=== PATIENT | female | born 1950 | race Caucasian/White ===

== ENCOUNTER → 2020-03-01 12:59 | Outpatient (CLI) | payer MEDICARE, SELFPAY ==
[2020-03-01] MEDS: COVID-19 VACC #1, MRNA(MOD) 100 MCG/0.5 ML VIAL IM (13:13)
== END ==
PROVIDERS: Visit Provider Internal Medicine
DX: Z23 Encounter for immunization (principal)
CPT/HCPCS: 0011A; 91301

== ENCOUNTER → 2020-03-29 13:46 | Outpatient (CLI) | payer MEDICARE, SELFPAY ==
[2020-03-29] MEDS: COVID-19 VACC #2, MRNA(MOD) 100 MCG/0.5 ML VIAL IM (13:55)
== END ==
PROVIDERS: Visit Provider Internal Medicine
DX: Z23 Encounter for immunization (principal)
CPT/HCPCS: 0012A; 91301

== ENCOUNTER → 2021-03-17 11:48 | Outpatient (CLI) | payer OTHER, SELFPAY ==
[2021-03-17 14:04] LABS: COVID19 -Nasal RAPID Negative (Negative)
== END ==
PROVIDERS: Visit Provider Nurse Practitioner Family
DX: Z20.822 Contact with and (suspected) exposure to COVID-19 (principal)
CPT/HCPCS: 87635

== ENCOUNTER → 2021-08-25 11:37 | Outpatient (CLI) | payer OTHER, SELFPAY ==
[2021-08-25 14:29] LABS: COVID19 -Nasal RAPID Negative (Negative)
== END ==
PROVIDERS: Visit Provider Surgery
DX: Z01.812 Encounter for preprocedural laboratory examination (principal); Z20.822 Contact with and (suspected) exposure to COVID-19
CPT/HCPCS: 87635; C9803

== ENCOUNTER 2021-08-26 14:53 | Day surgery (SDC) | payer OTHER, SELFPAY ==
[2021-08-26 15:07] VITALS: BMI 29.7
[2021-08-26 15:19] VITALS: BP 129/85; PULSE 86; RESP 16; TEMP 35.9; O2SAT 96
[2021-08-26] MEDS: LACTATED RINGERS 1,000 ML 200 ML IV (16:05)
--- NOTE | 2021-08-26 16:38 | PM.HP.1 ---
History of Present Illness History of Present Illness Date Patient Seen: 08/26/21 Time Patient Seen: 16:38 Chief complaint: SCREENING COLONOSCOPY Narrative: The patient presents for colorectal screening. She had previous colonoscopy 12 years ago which was normal.. No personal or family history of colon cancer. On further history denies any recent gastrointestinal symptoms. No nausea, vomiting, abdominal pain, loss of appetite, unexplained weight loss, change in bowel habits, diarrhea, constipation, melena, hematochezia, or bright red blood per rectum. Patient History Surgical History Hx of spinal surgery Family & Social History Family History Sister Breast cancer Father Stroke Social History: household members spouse Tobacco & Substance use: Smoking Status Never smoker alcohol intake current alcohol intake frequency a few times a month Substance Use Type does not use Meds Home Medications and Allergies Home Medications Medication Instructions Recorded Confirmed Type fluoxetine 10 mg capsule 10 mg PO DAILY 03/17/21 03/17/21 History acetaminophen 08/26/21 History duloxetine 20 mg capsule,delayed cap PO 08/26/21 History release ibuprofen 200 mg tablet 400 mg PO Q6H PRN Pain (Scale 08/26/21 08/26/21 History Score 1-3) Allergies Allergy/AdvReac Type Severity Reaction Status Date / Time No Known Drug Allergies Allergy Verified 08/26/21 15:31 Exam Vital Signs (past 8 hours): - 08/26/21 15:19 Temperature 96.7 F L Pulse Rate 86 Respiratory Rate 16 Blood Pressure 129/85 Pulse Oximetry 96 Oxygen Delivery Method Room Air Oxygen Delivery Method Room Air Narrative Exam Narrative: General adult woman alert oriented no acute distress Abdomen soft nontender nondistended Assessment & Plan Assessment & Plan narrative: The patient requires colorectal screening and colonoscopy is recommended. Technical details were discussed. Risks, benefits, alternatives explained. Risks including but not limited to myocardial infarction, aspiration, bleeding, pain, missed lesion, incomplete examination, need for further radiographic studies, colonic perforation, and need for major abdominal surgery were discussed. All questions were answered to their satisfaction, and they are in agreement with this plan. Time Spent With Patient Critical Care time: I spent a total of [] minutes of critical care time on this patient's care today; this time is exclusive of procedural time.
[2021-08-26] MEDS: fentaNYL 250 MCG/5 ML INJ 150 MCG IV (17:02)
[2021-08-26] MEDS: MIDAZOLAM 5 MG/5 ML VIAL 6 MG IV (17:04)
--- NOTE | 2021-08-26 17:08 | PM.OP.COLON ---
Operative Date/Time/Diagnoses Date of procedure: 08/26/21 Time of procedure: 17:08 Pre-op diagnosis: Screening colonoscopy Post-op diagnosis: same Procedure & Clinicians Study performed: Colonoscopy Same procedure as scheduled: Yes Indications: Screening Surgeon: Bryon Johnson Procedure Notes Procedure in detail: Medications: Conscious sedation using 6 mg IV midazolam and 150 mcg IV of fentanyl The history and physical was performed/updated and the patient is ASA class is 2. The procedure was discussed in detail with the patient. Potential risks complications including infection, bleeding, missed diagnosis, perforation, need for surgery, and were explained. Their questions were answered and informed consent was obtained. Patient was brought to the procedure room and placed standard monitoring equipment. The patient's vital signs were monitored continuously throughout the entire procedure. Prior to starting time-out was performed. The patient was placed in the left lateral recumbent position. Procedural sedation was administered. Examination began with a thorough inspection of the perianal area there was no evidence of fissures, fistulae, external hemorrhoids or cutaneous malignancy. The colonoscopy scope was then placed into the anal canal and was advanced to the cecum, which was identified by the ileocecal valve, the appendiceal orifice and the confluence of the taenia. The scope was then slowly withdrawn examining colon thoroughly in all directions, irrigating it of any residual stool. FINDINGS 1. Normal healthy colon. No masses or polyps 2. Sigmoid-mild diverticulosis The patient tolerated the procedure well. They will be discharged once criteria are met. The prep was of good/excellent quality. The withdrawl time was 6 minutes. The sedation time was 18 minutes. Findings: divertiulosis Specimen(s): none sent Complications: none Impression: Normal colonoscopy Post-procedure Recommendations: Colonoscopy in 10 years and High fiber diet Disposition: same day surgery
[2021-08-26 17:10] VITALS: BP 137/75; PULSE 70; RESP 16; TEMP 36.6; O2SAT 94
[2021-08-26 17:15] VITALS: BP 137/76; PULSE 83; RESP 22; O2SAT 95
[2021-08-26 17:20] VITALS: BP 113/70; PULSE 76; RESP 16; O2SAT 97
[2021-08-26 17:25] VITALS: BP 132/65; PULSE 68; RESP 16; TEMP 36.5; O2SAT 97
[2021-08-26 17:45] VITALS: BP 121/69; PULSE 70; RESP 16; TEMP 36.6; O2SAT 97
--- NOTE | 2021-08-26 17:52 | SUR.PHASEII ---
Pt ready to go, left in stable condition.
== END 2021-08-26 17:49 | disposition home or self-care (01) ==
PROVIDERS: Referring Provider Surgery; Visit Provider Surgery
PROC: 0DJD8ZZ Inspection of Lower Intestinal Tract, Via Natural or Artificial Opening Endoscopic (ICD-10-PCS; CPT 45378; principal; 2021-08-26 16:00)
DX: Z12.11 Encounter for screening for malignant neoplasm of colon (principal); K57.30 Diverticulosis of large intestine without perforation or abscess without bleeding
CPT/HCPCS: G0121; 99152; J2250; J3010

== ENCOUNTER → 2024-01-20 13:55 | Outpatient (CLI) | payer MEDICARE, SELFPAY ==
--- NOTE | 2024-01-20 | DI.MRI.S_ITS ---
PROCEDURE: MR LUMBAR SPINE WO CON INDICATIONS: LUMBAR STENOSIS TECHNIQUE: Noncontrast sagittal T1 spin echo and T2 fast echo, sagittal STIR, and T2 fast spin echo through the lumbar spine. In cases with scoliosis, additional coronal T2 fast spin echo may be performed. COMPARISON: None. FINDINGS: Image quality: Excellent. Alignment and Curvature: There is normal bony alignment. Bone Marrow: Degenerative endplate changes L5-S1 associated with left hemilaminotomy Spinal Cord: Conus medullaris terminates at the L1 level. Visualized cord demonstrates normal signal and size. Paraspinous Soft Tissues: No paravertebral masses. T12-L1: Normal appearance. L1-L2: Normal appearance. L2-L3: Disc space narrowing and disc bulge with hypertrophic facet joints no central stenosis. No foraminal stenosis. L3-L4: Normal appearance. L4-L5: Disc bulge asymmetric to the left with hypertrophic facet joints. No central stenosis. Moderate left foraminal stenosis. L5-S1: Disc bulge and arthropathy. No central or right foraminal stenosis. Severe left foraminal stenosis. IMPRESSION: Arthropathy related moderate L4-5 and severe L5-S1 left foraminal stenosis Approved by: Bk Rodriguez M.D. on 01/20/2024 at 18:44
== END ==
PROVIDERS: Referring Provider Orthopaedic Surgery Orthopaedic Surgery of the Spine; Visit Provider Orthopaedic Surgery Orthopaedic Surgery of the Spine
DX: M48.062 Spinal stenosis, lumbar region with neurogenic claudication (principal); M48.07 Spinal stenosis, lumbosacral region; M47.816 Spondylosis without myelopathy or radiculopathy, lumbar region; M47.817 Spondylosis without myelopathy or radiculopathy, lumbosacral region
CPT/HCPCS: 72148

== ENCOUNTER → 2024-09-02 12:39 | Outpatient (CLI) | payer MEDICARE, SELFPAY ==
--- NOTE | 2024-09-02 | DI.RAD.S_ITS ---
PROCEDURE: XR LUMBAR SPINE MIN 4V INDICATIONS: Spinal stenosis, lumbar region without neurogenic claudicati TECHNIQUE: 5 views of the lumbar spine were acquired, including bilateral oblique views. COMPARISON: [facility], MR, MR LUMBAR SPINE WO CON, 01/20/2024, 14:19. FINDINGS: Bones: 5 nonrib-bearing vertebrae are present. There is minimal scattered retrolisthesis unchanged. Multilevel degenerative changes most prominent L5-S1 relatively stable. Small anterior osteophytes. No vertebral body compression fractures. No suspicious bony lesions. Soft tissues: Overlying bowel gas pattern is normal. No suspicious soft tissue calcifications. Oblique images: No pars defects. IMPRESSION: No acute bony abnormality. Stable appearance of degenerative change. Dictated by: Anabella Carroll M.D. on 09/02/2024 at 13:24 Approved by: Anabella Carroll M.D. on 09/02/2024 at 13:25
== END ==
PROVIDERS: Referring Provider Orthopaedic Surgery; Visit Provider Orthopaedic Surgery
DX: M47.26 Other spondylosis with radiculopathy, lumbar region (principal); M47.27 Other spondylosis with radiculopathy, lumbosacral region; M48.061 Spinal stenosis, lumbar region without neurogenic claudication
CPT/HCPCS: 72110

== ENCOUNTER → 2024-09-07 15:43 | Outpatient (CLI) | payer MEDICARE, SELFPAY ==
--- NOTE | 2024-09-07 15:44 | DI.MRI.S_ITS ---
PROCEDURE: MR LUMBAR SPINE WO/W CON INDICATIONS: lumbar region TECHNIQUE: Noncontrast sagittal T1 spin echo and T2 fast spin echo, sagittal STIR, axial T1 and T2 fast spin echo through the lumbar spine. In cases with scoliosis, additional coronal T2 fast spin echo may be performed. After the administration of contrast, sagittal and axial T1 spin echo with fat saturation through the lumbar spine. COMPARISON: [facility], MR, MR LUMBAR SPINE WO CON, 01/20/2024, 14:19. [facility], CR, XR LUMBAR SPINE MIN 4V, 09/02/2024, 12:40. FINDINGS: Alignment and curvature: There is normal bony alignment. Marrow: Marrow is of normal overall signal. No acute vertebral body compression fractures. No suspicious marrow enhancement. Spinal cord: Conus medullaris terminates at the L1 level. Visualized spinal cord demonstrates normal signal, without suspicious enhancement. Paraspinous soft tissues: There has been a left L5-S1 facetectomy in the interval. 1.5 cm seroma with peripheral enhancement present in the left associated soft tissues. T12-L1: Normal appearance. L1-L2: Normal appearance. L2-L3: Disc space narrowing without central or foraminal stenosis L3-L4: Hypertrophic facet joints. No central or foraminal stenosis. L4-L5: Mild central stenosis. No foraminal stenosis L5-S1: Disc space narrowing and arthropathy. Left facetectomy. IMPRESSION: Left L5-S1 facetectomy associated with postop seroma and peripheral enhancement. If there is clinical concern for postop infection, consider either CT-guided percutaneous aspiration or short-term interval follow-up Approved by: Bk Rodriguez M.D. on 09/08/2024 at 16:59
== END ==
LOC: MRI 15:43
PROVIDERS: Referring Provider Orthopaedic Surgery; Visit Provider Orthopaedic Surgery
DX: M48.061 Spinal stenosis, lumbar region without neurogenic claudication (principal); M47.816 Spondylosis without myelopathy or radiculopathy, lumbar region; L76.34 Postprocedural seroma of skin and subcutaneous tissue following other procedure
CPT/HCPCS: 72158; A9579